=== PATIENT | male | born 1965 | race Caucasian/White ===

== ENCOUNTER 2023-08-09 23:48 | Emergency (ER) | payer OTHER, BC, SELFPAY ==
[2023-08-09 23:58] VITALS: BP 137/85; PULSE 88; RESP 16; TEMP 36.2; O2SAT 93; BMI 35.9
--- NOTE | 2023-08-10 00:11 | ED_ITS ---
HPI - Wound/Laceration General Date Seen: 08/10/23 Chief Complaint: Laceration/Wound Stated Complaint: Cut Time Seen by Provider: 08/09/23 23:56 Source: patient Mode of arrival: ambulatory Limitations: no limitations History of Present Illness HPI narrative: Patient is a 57-year-old male with no pertinent medical problems presenting to emergency department for laceration to his left thumb. He states about 3 hours ago he was cutting up some stuff with a box icer when it slipped and cut his finger. The bleeding has not stopped since then so he came in to have it evaluated for stitches. Last tetanus shot was 2020. Denies any other injuries. Denies any numbness to the finger. Notes he has full range of motion of the thumb. Related Data Home Medications Medication Instructions Recorded Confirmed albuterol 90 mcg/actuation aerosol mcg inhalation 08/10/23 inhaler amlodipine 5 mg tablet 5 mg PO DAILY 08/10/23 08/10/23 aspirin 81 mg tablet,delayed 81 mg PO DAILY 08/10/23 08/10/23 release (Adult Low Dose Aspirin) bupropion HCl 150 mg 24 hr tablet, 150 mg PO BID 08/10/23 08/10/23 extended release ergocalciferol (vitamin D2) 50,000 50,000 unit PO .q 14 days 08/10/23 08/10/23 unit tablet fluticasone 100 mcg-salmeterol 50 1 inh inhalation DAILY 08/10/23 08/10/23 mcg/dose blistr powdr for inhalation [id number] 3,000 - 9,500 unit PO PRN 08/10/23 08/10/23 losartan 100 mg tablet 100 mg PO DAILY 08/10/23 08/10/23 riboflavin (vitamin B2) 400 mg 400 mg PO DAILY 08/10/23 08/10/23 tablet rosuvastatin 10 mg tablet 10 mg PO DAILY 08/10/23 08/10/23 Allergies Allergy/AdvReac Type Severity Reaction Status Date / Time atorvastatin Allergy Unknown Verified 08/10/23 00:13 lidocaine AdvReac Mild itching Verified 08/10/23 00:13 lisinopril AdvReac Mild Cough Verified 08/10/23 00:13 procaine [From Novocain] AdvReac Mild itching Verified 08/10/23 00:13 ranitidine AdvReac Mild Cough Verified 08/10/23 00:13 Review of Systems Narrative: Pertinent systems reviewed and were negative unless stated in HPI PFSH PFSH Social History Smoking Status: Never smoker Do you use any of these nicotine containing products: None Second hand tobacco smoke exposure: No How often do you have a drink containing alcohol: never AUDIT-C Alcohol total score: 0 Non-prescribed substance use: denies use service: No Exam Narrative: Exam Narrative: Const: Well-nourished, Well-developed, in mild distress Eyes: PERRL, no conjunctival injection, and symmetrical lids HENT: Atraumatic external nose and ears. Moist mucous membranes. MSK:Extremities w/o deformity, Normal Active ROM Skin: Warm, Dry. 0. 75 cm laceration to left medial thumb just media to the nail bed Neuro: Normal Muscle tone, No focal neurological deficits. Psych: Awake, Alert, & Oriented x3. Appropriate mood and affect. Const: Vital Signs, click to edit/add: Vital Signs - 24 hr 08/09/23 23:58 Temperature 97.2 F L Pulse Rate [Pulse Oximeter] 88 Respiratory Rate 16 Blood Pressure [Ri ght Upper Arm] 137/85 Pulse Oximetry 93 Oxygen Delivery Me thod Room Air Course Vital Signs Vital signs: Initial Vital Signs Temperature 97.2 F L 08/09/23 23:58 Temperature Source Temporal Artery Scan 08/09/23 23:58 Pulse Rate 88 08/09/23 23:58 Pulse Rhythm Regular 08/09/23 23:58 Pulse Strength 3+ Normal 08/09/23 23:58 Respiratory Rate 16 08/09/23 23:58 Blood Pressure 137/85 08/09/23 23:58 Blood Pressure Mean 102 08/09/23 23:58 Blood Pressure Position Sitting 08/09/23 23:58 Pulse Oximetry 93 08/09/23 23:58 Oxygen Delivery Method Room Air 08/09/23 23:58 Vital Signs Temperature 97.2 F L 08/09/23 23:58 Pulse Rate 88 08/09/23 23:58 Respiratory Rate 16 08/09/23 23:58 Blood Pressure 137/85 08/09/23 23:58 Pulse Oximetry 93 08/09/23 23:58 Oxygen Delivery Method Room Air 08/09/23 23:58 Temperature 97.2 F L 08/09/23 23:58 Pulse Rate 88 08/09/23 23:58 Respiratory Rate 16 08/09/23 23:58 Blood Pressure 137/85 08/09/23 23:58 Pulse Oximetry 93 08/09/23 23:58 Oxygen Delivery Method Room Air 08/09/23 23:58 MDM - Wound/Laceration MDM Narrative Medical decision making narrative: Patient is a 57-year-old male presenting to the emergency department for a laceration. See laceration repair note. He is up-to-date on his tetanus shot. Bleeding has stopped. He is otherwise doing well. Considering the box icer was not clean in family is concerned about potential infection we will start the patient on prophylactic antibiotics. Keflex sent through [email or web address]. Patient and family agreeable with this plan. He does not need his tetanus updated Discharge Plan Discharge Clinical Impression: Laceration Patient Disposition: Home, Self-Care Condition: Stable Instructions: Finger Laceration (ED) Additional Instructions: Follow-up with your primary care provider in the next 7 days to have the 3 sutures removed. For next 6 months, once sutures are removed, whenever you go outside put a dab of sunscreen over the laceration site to improve scar appearance. Topical antibiotics are not necessary at this time. Patient can shower but do not submerge the laceration until sutures are removed. Take the antibiotics as directed Prescriptions: No Action albuterol 90 mcg/actuation aerosol inhalation amlodipine 5 mg tablet 5 mg PO DAILY aspirin [Adult Low Dose Aspirin] 81 mg tablet,delayed release (DR/EC) 81 mg PO DAILY bupropion HCl 150 mg tablet extended release 24 hr 150 mg PO BID ergocalciferol (vitamin D2) 50,000 unit tablet 50,000 unit PO .q 14 days fluticasone propion-salmeterol 100-50 mcg/dose blister with device 1 inh inhalation DAILY losartan 100 mg tablet 100 mg PO DAILY [id number] [Pancrelipase] 3,000 - 9,500 unit PO PRN riboflavin (vitamin B2) 400 mg tablet 400 mg PO DAILY rosuvastatin 10 mg tablet 10 mg PO DAILY Follow Up/Referrals: Provider,Not a Local [Primary Care Provider] - Stand Alone [facility]: [facility] Instructions Procedures Laceration Left thumb: Name of person performing procedure: Kwadwo Saldivar Site: hand (Thumb) Side (If applicable): left Size (cm): 0.75 Description: linear and clean Depth: simple, single layer Local Anesthetic: lidocaine 1% (Digital nerve block) Amount of anesthesia used (mL): 5 Pre-repair: wound explored, irrigated extensively and deep structures intact Skin layer closed with: nylon Size (cm): 5-0 Number of sutures: 3 Technique: simple, interrupted
== END 2023-08-10 00:42 | disposition home or self-care (01) ==
PROVIDERS: Emergency Provider Student in an Organized Health Care Education/Training Program
DX: S61.012A Laceration without foreign body of left thumb without damage to nail, initial encounter (principal); W27.8XXA Contact with other nonpowered hand tool, initial encounter
CPT/HCPCS: 12001; 99282; 99283